=== PATIENT | female | born 1980 | race Caucasian/White ===

== ENCOUNTER 2021-08-31 01:21 | Day surgery (SDC) | payer OTHER, SELFPAY ==
[2021-08-17 14:08] VITALS: BMI 28.8
[2021-08-31 09:14] VITALS: BP 138/90; PULSE 91; RESP 16; TEMP 36.2; O2SAT 99; BMI 28.3
[2021-08-31] MEDS: LACTATED RINGERS 1,000 ML 150 ML IV CONT (09:27)
--- NOTE | 2021-08-31 09:50 | P.PNAN_ITS ---
Anes - Initial Pre Proc Eval Procedure: Operation Date: 08/31/21 10:30 Proposed Procedures p Screening Colonoscopy - Dawit Jackman MD Date/Time: 08/31/21 09:50 Surgeon: Dawit Jackman MD Pre Op Diagnosis: family hx of colon ca Patient Data Age: 41 Gender: F Height: 1.68 m Weight: 79.7 kg Last Vital Signs Temp 36.2 C L 08/31/21 09:14 Pulse 91 08/31/21 09:14 Resp 16 08/31/21 09:14 BP 138/90 08/31/21 09:14 Pulse Ox 99 08/31/21 09:14 O2 Del Method Room Air 08/31/21 09:14 Allergies Allergy/AdvReac Type Severity Reaction Status Date / Time No Known Allergies Allergy Verified 08/31/21 09:09 Home Medications Medication Instructions Recorded Confirmed Type amlodipine 10 mg tablet 10 mg PO DAILY #90 tabs 07/12/21 08/31/21 Rx Patient hx anesthesia problems: none Family hx anesthesia problems: none Results Review: All pre-operative results and documents have been reviewed as part of the pre- operative evaluation. [facility] Past Medical History Medical History (Updated 10/15/20 @ 09:44 by Jose Weiss MD) Screening, lipid Surgical History Surgical History (Updated 08/31/21 @ 09:50 by Venkatesh Preciado MD) History of appendectomy Family History Family History Mother Depression Sibling Patient's sister is in good health Father Family history of alcoholism Other Carcinoma of colon Family history of cardiovascular disease Family history of malignant neoplasm of uterus Hypertension Social History Social History Smoking status: Current every day smoker Tobacco type: cigarettes Alcohol intake: current Living arrangements: with family Spiritual care concerns: No Anes - Eval Final PreProcedure Day of Procedure 08/31/21 09:50 Patient weight: overweight Lungs: clear to auscultation Airway: Mallampati scale class II Neurological: alert and oriented ASA classification: II Emergent: no Anesthesia type and monitoring: general GIVS and standard monitoring Results Review: All pre-operative results and documents have been reviewed as part of the pre- operative evaluation. Informed Consent: The patient's anesthetic plan and its attendant risks and benefits were discussed with the patient/family/POA. Questions were solicited and answers provided to the satisfaction of the patient/family/POA.
--- NOTE | 2021-08-31 10:10 | PM.HPGS ---
History of Present Illness History of Present Illness Consent: Risks, benefits, and alternatives have been discussed and questions answered. Patient agrees to proceed with procedure. Chief complaint: family hx of colon ca Narrative: Linsey Rush is a 41 year old female here for first screening colonoscopy, grandparent colon cancer at 50's Review of Systems Constitutional: Constitutional: Denies headache(s) and Denies weakness Eyes: Eyes: Denies blurry vision ENT: Reports Normal hearing present, Denies headache(s) and Denies neck pain Cardiovascular: Cardiovascular: Denies chest pain and Denies dyspnea Respiratory: Respiratory: Denies dyspnea Gastrointestinal: Gastrointestinal: Reports no additional gastrointestinal complaints Genitourinary: Genitourinary: Denies dysuria Musculoskeletal: Musculoskeletal: Denies neck pain Integumentary/Breasts: Skin/Breast: Denies dry skin Neurologic: Reports Normal hearing present, Denies headache(s) and Denies weakness Psychiatric: Psychiatric: Denies anxiety Endocrine: Endocrine: Denies change in body appearance Hematologic/Lymphatic: Hematologic/Lymphatic: Denies easy bleeding Allergic/Immunologic: Allergic/Immunologic: Denies urticaria PMFSH Past Medical History Medical History (Updated 10/15/20 @ 09:44 by Jose Weiss MD) Screening, lipid Surgical History Surgical History (Updated 08/31/21 @ 09:50 by Venkatesh Preciado MD) History of appendectomy Family History Family History Mother Depression Sibling Patient's sister is in good health Father Family history of alcoholism Other Carcinoma of colon Family history of cardiovascular disease Family history of malignant neoplasm of uterus Hypertension Social History Social History Smoking status: Current every day smoker Tobacco type: cigarettes Alcohol intake: current Living arrangements: with family Spiritual care concerns: No Meds Home Medications and Allergies Home Medications Medication Instructions Recorded Confirmed Type amlodipine 10 mg tablet 10 mg PO DAILY #90 tabs 07/12/21 08/31/21 Rx Allergies Allergy/AdvReac Type Severity Reaction Status Date / Time No Known Allergies Allergy Verified 08/31/21 09:09 Vital Signs Vital Signs - 24 hr 08/31/21 09:14 Temperature 97.2 F L Pulse Rate 91 Respiratory Rate 16 Blood Pressure 138/90 Pulse Oximetry 99 Oxygen Delivery Room Air Exam Const: General: comfortable and no acute distress HENMT: General nose exam: Normal nares present Eyes: General: appearance normal, both eyes and all related structures Neck: Neck: no JVD Resp: Auscultation: clear to auscultation bilaterally Cardio: Rate: regular rate Rhythm: regular rhythm GI: Inspection: non-distended GI Palp: Yes Soft to palpation Skin: General skin exam: normal color Neuro: General: gait normal Speech: normal speech Extrem: General: normal to inspection Psych: Mental Status: mental status grossly normal Assessment and Plan Assessment and plan (1) FH: colon cancer in first degree relative <60 years old: Code(s): Z80.0 - Family history of malignant neoplasm of digestive organs Status: Acute Assessment and Plan: colonoscopy
[2021-08-31 10:42] VITALS: BP 96/57; PULSE 67; RESP 19; O2SAT 99
[2021-08-31 10:52] VITALS: BP 115/75; PULSE 77; RESP 24; O2SAT 100
[2021-08-31 11:02] VITALS: BP 112/55; PULSE 67; RESP 22; O2SAT 100
== END 2021-08-31 11:16 | disposition home or self-care (01) ==
PROVIDERS: PCP Internal Medicine; Visit Provider Internal Medicine Gastroenterology
PROC: 0DJD8ZZ Inspection of Lower Intestinal Tract, Via Natural or Artificial Opening Endoscopic (ICD-10-PCS; CPT 45378; principal; 2021-08-31 10:30)
DX: Z12.11 Encounter for screening for malignant neoplasm of colon (principal); K63.5 Polyp of colon; D12.3 Benign neoplasm of transverse colon; Z80.0 Family history of malignant neoplasm of digestive organs; F17.210 Nicotine dependence, cigarettes, uncomplicated
CPT/HCPCS: 45385; 45381; 88305; J2704; J7120

== ENCOUNTER 2022-10-26 08:05 | Outpatient (CLI) | payer OTHER, SELFPAY ==
[2022-10-26 16:54] LABS: Alanine Aminotransferase 17 U/L (6-35); Albumin Level 4.3 g/dL (3.5-5.1); Alkaline Phosphatase 59 U/L (38-126); Anion Gap 4 mmol/L (8-16); Aspartate Amino Transferase 42 U/L (14-36); Bilirubin,Total 0.6 mg/dL (0.2-1.3); Blood Urea Nitrogen 11 mg/dL (7-17); Calcium 9.2 mg/dL (8.4-10.2); Carbon Dioxide 34 mmol/L (22-30); Chloride 101 mmol/L (98-107); Cholesterol 209 mg/dL (0-200); Estimated Glomerular Filt Rate > 60; Glucose 72 mg/dL (65-110); HDL Direct 41 mg/dL; Potassium 4.1 mmol/L (3.4-5.0); Sodium 139 mmol/L (137-145); Triglycerides 134 mg/dL (<150)
[2022-10-26 17:04] LABS: LDL Cholesterol Direct 124 mg/dL
== END 2022-10-26 08:06 | disposition home or self-care (01) ==
LOC: ANHGOSHLAB 08:07
PROVIDERS: PCP Family Medicine; Visit Provider Family Medicine
DX: Z13.29 Encounter for screening for other suspected endocrine disorder (principal); Z13.228 Encounter for screening for other metabolic disorders; Z13.220 Encounter for screening for lipoid disorders
CPT/HCPCS: 36415; 80053; 80061; 84443

== ENCOUNTER 2022-11-10 08:00 | Outpatient (NON) | payer OTHER, SELFPAY | END 2022-11-10 08:01 | disposition home or self-care (01) | PROVIDERS: PCP Family Medicine; Visit Provider Internal Medicine Gastroenterology | DX: K63.5 Polyp of colon (principal); Z80.0 Family history of malignant neoplasm of digestive organs | CPT/HCPCS: 88305 ==

== ENCOUNTER 2022-11-10 08:46 | Day surgery (SDC) | payer OTHER, SELFPAY ==
[2022-10-25 11:11] VITALS: BMI 27.3
[2022-11-10 09:43] VITALS: BP 111/76; PULSE 69; RESP 16; TEMP 36.7; O2SAT 100; BMI 26.1
[2022-11-10] MEDS: LACTATED RINGERS 1,000 ML 150 ML IV CONT (09:52)
--- NOTE | 2022-11-10 09:53 | WPDANESEPPF ---
Anes - Initial Pre Proc Eval Procedure: Operation Date: 11/10/22 10:30 Proposed Procedures p Diagnostic Colonoscopy - Dawit Jackman MD Date/Time: 11/10/22 09:53 Surgeon: Dawit Jackman MD Pre Op Diagnosis: Family HX Colon Cancer, HX Colon Polyps Patient Data Age: 42 Gender: F Height: 1.66 m Weight: 72.2 kg Last Vital Signs Temp 36.7 C 11/10/22 09:43 Pulse 69 11/10/22 09:43 Resp 16 11/10/22 09:43 BP 111/76 11/10/22 09:43 Pulse Ox 100 11/10/22 09:43 O2 Del Method Room Air 11/10/22 09:43 Allergies Allergy/AdvReac Type Severity Reaction Status Date / Time No Known Allergies Allergy Verified 10/28/22 14:52 Home Medications Medication Instructions Recorded Confirmed Type amlodipine 10 mg tablet 10 mg PO DAILY #90 tabs 10/25/22 11/10/22 Rx olmesartan 5 mg tablet 5 mg PO DAILY #90 tabs 10/25/22 11/10/22 Rx multivitamin 1 tablet PO DAILY 10/28/22 11/10/22 History Patient hx anesthesia problems: none Family hx anesthesia problems: none Results Review: All pre-operative results and documents have been reviewed as part of the pre-operative evaluation. [facility] Past Medical History Medical History (Updated 11/10/22 @ 09:53 by Venkatesh Preciado MD) HTN (hypertension) Screening, lipid Surgical History Surgical History History of appendectomy Family History Family History Mother Depression Sibling Patient's sister is in good health Father Family history of alcoholism Other Carcinoma of colon Family history of cardiovascular disease Family history of malignant neoplasm of uterus Hypertension Social History Social History Smoking status: Current every day smoker Tobacco type: e-cigarettes/vaping Alcohol intake: current Alcohol use details: Socially Substance use: never Substance use type: does not use Lack of Transportation: No Lack of Food: Never True Current Housing: I Have Housing Concerned About Future Housing: No Difficulty Paying Gas/Electric Bills: No Difficulty Paying for Meds: No Currently Unemployed: No Education: High School Diploma/GED Difficulty w/ Childcare or Family Care: No Living arrangements: with family Spiritual care concerns: No Anes - Eval Final PreProcedure Day of Procedure 11/10/22 09:53 Patient weight: overweight Heart: regular rate and rhythm Lungs: clear to auscultation Airway: Mallampati scale class II Neurological: alert and oriented ASA classification: II Emergent: no Anesthetic plan: proceed Anesthesia type and monitoring: general GIVS and standard monitoring Results Review: All pre-operative results and documents have been reviewed as part of the pre-operative evaluation. Informed Consent: The patient's anesthetic plan and its attendant risks and benefits were discussed with the patient/family/POA. Questions were solicited and answers provided to the satisfaction of the patient/family/POA.
--- NOTE | 2022-11-10 10:02 | PM.HPGS ---
History of Present Illness History of Present Illness Consent: Risks, benefits, and alternatives have been discussed and questions answered. Patient agrees to proceed with procedure. Chief complaint: Family HX Colon Cancer, HX Colon Polyps Narrative: Linsey Rush is a 42 year old female with large polyp removed last year and also grandparent with colon cancer at 50's Review of Systems Constitutional: Constitutional: Denies headache(s) and Denies weakness Eyes: Eyes: Denies blurry vision ENT: Reports Normal hearing present, Denies headache(s) and Denies neck pain Cardiovascular: Cardiovascular: Denies chest pain and Denies dyspnea Respiratory: Respiratory: Denies dyspnea Gastrointestinal: Gastrointestinal: Reports no additional gastrointestinal complaints Genitourinary: Genitourinary: Denies dysuria Musculoskeletal: Musculoskeletal: Denies neck pain Integumentary/Breasts: Skin/Breast: Denies dry skin Neurologic: Reports Normal hearing present, Denies headache(s) and Denies weakness Psychiatric: Psychiatric: Denies anxiety Endocrine: Endocrine: Denies change in body appearance Hematologic/Lymphatic: Hematologic/Lymphatic: Denies easy bleeding Allergic/Immunologic: Allergic/Immunologic: Denies urticaria PMFSH Past Medical History Medical History (Updated 11/10/22 @ 10:03 by Dawit Jackman MD) Adenomatous colon polyp HTN (hypertension) Screening, lipid Surgical History Surgical History History of appendectomy Family History Family History Mother Depression Sibling Patient's sister is in good health Father Family history of alcoholism Other Carcinoma of colon Family history of cardiovascular disease Family history of malignant neoplasm of uterus Hypertension Social History Social History Smoking status: Current every day smoker Tobacco type: e-cigarettes/vaping Alcohol intake: current Alcohol use details: Socially Substance use: never Substance use type: does not use Lack of Transportation: No Lack of Food: Never True Current Housing: I Have Housing Concerned About Future Housing: No Difficulty Paying Gas/Electric Bills: No Difficulty Paying for Meds: No Currently Unemployed: No Education: High School Diploma/GED Difficulty w/ Childcare or Family Care: No Living arrangements: with family Spiritual care concerns: No Meds Home Medications and Allergies Home Medications Medication Instructions Recorded Confirmed Type amlodipine 10 mg tablet 10 mg PO DAILY #90 tabs 10/25/22 11/10/22 Rx olmesartan 5 mg tablet 5 mg PO DAILY #90 tabs 10/25/22 11/10/22 Rx multivitamin 1 tablet PO DAILY 10/28/22 11/10/22 History Allergies Allergy/AdvReac Type Severity Reaction Status Date / Time No Known Allergies Allergy Verified 10/28/22 14:52 Vital Signs Vital Signs - 24 hr 11/10/22 09:43 Temperature 98.1 F Pulse Rate 69 Respiratory Rate 16 Blood Pressure 111/76 Pulse Oximetry 100 Oxygen Delivery Room Air Exam Const: General: comfortable and no acute distress HENMT: Face/Nose/Sinus: Normal nares present Eyes: General: appearance normal, both eyes and all related structures Neck: Neck: no JVD Resp: Auscultation: clear to auscultation bilaterally Cardio: Rate: regular rate Rhythm: regular rhythm GI: Inspection: non-distended GI Palp: Yes Soft to palpation Skin: General skin exam: normal color Neuro: General: gait normal Speech: normal speech Extrem: General: normal to inspection Psych: Mental Status: mental status grossly normal Assessment and Plan Assessment and plan (1) FH: colon cancer in first degree relative <60 years old: Code(s): Z80.0 - Family history of malignant neoplasm of digestive organs Status: Acute (2) [place]
[2022-11-10 10:18] VITALS: BP 84/57; PULSE 64; RESP 14; O2SAT 99
[2022-11-10 10:28] VITALS: BP 106/72; PULSE 65; RESP 16; O2SAT 100
--- NOTE | 2022-11-10 10:35 | WPDANESPN ---
Anes - Prog Note Post-Op Date/Time: 11/10/22 10:35 Cardiovascular status: normal Respiratory status: normal Airway patency: baseline Mental status: baseline Post-Op hydration status: normal Vital Signs: Last Vital Signs Temp 36.7 C 11/10/22 09:43 Pulse 65 11/10/22 10:28 Resp 16 11/10/22 10:28 BP 106/72 11/10/22 10:28 Pulse Ox 100 11/10/22 10:28 O2 Del Method Room Air 11/10/22 10:28 Pain Score (VAS): 0/10 I/O: Intake & Output 11/09/22 11/10/22 11/10/22 23:59 07:59 15:59 Intake Total 500 Balance 500 Patient Feedback: Patient satisfied with anesthetic care.
[2022-11-10 10:38] VITALS: BP 95/52; PULSE 58; RESP 16; O2SAT 100
--- NOTE | 2022-11-10 10:51 | SUR.PHASEII ---
1045; PT SITTING UPRIGHT ON STRETCHER. AWAKE AND ALERT. TALKING WITH FAMILY AND EATING CRACKERS
== END 2022-11-10 10:51 | disposition home or self-care (01) ==
PROVIDERS: PCP Family Medicine; Visit Provider Internal Medicine Gastroenterology
PROC: 0DJD8ZZ Inspection of Lower Intestinal Tract, Via Natural or Artificial Opening Endoscopic (ICD-10-PCS; CPT 45378; principal; 2022-11-10 10:30)
DX: Z86.010 Personal history of colon polyps (principal); D12.3 Benign neoplasm of transverse colon; K64.8 Other hemorrhoids
CPT/HCPCS: 45380

== ENCOUNTER 2023-11-10 09:05 | Outpatient (CLI) | payer OTHER, SELFPAY ==
[2023-11-10 13:43] LABS: Alanine Aminotransferase 12 U/L (6-35); Albumin Level 4.2 g/dL (3.5-5.1); Alkaline Phosphatase 57 U/L (38-126); Anion Gap 8 mmol/L (4-12); Aspartate Amino Transferase 35 U/L (14-36); Bilirubin,Total 1.4 mg/dL (0.2-1.3); Blood Urea Nitrogen 11 mg/dL (7-17); Calcium 9.1 mg/dL (8.4-10.2); Carbon Dioxide 27 mmol/L (22-30); Chloride 102 mmol/L (98-107); Cholesterol 171 mg/dL (0-200); Estimated Glomerular Filt Rate > 60; Glucose 86 mg/dL (65-110); HDL Direct 40 mg/dL; Potassium 3.9 mmol/L (3.4-5.0); Sodium 137 mmol/L (137-145); Triglycerides 122 mg/dL (<150)
[2023-11-10 13:53] LABS: LDL Cholesterol Direct 103 mg/dL
== END 2023-11-10 09:06 | disposition home or self-care (01) ==
LOC: ANHGOSHLAB 09:06
PROVIDERS: PCP Family Medicine; Visit Provider Family Medicine
DX: Z13.228 Encounter for screening for other metabolic disorders (principal); Z13.220 Encounter for screening for lipoid disorders
CPT/HCPCS: 36415; 80053; 80061

== ENCOUNTER 2024-06-27 09:43 | Outpatient (CLI) | payer OTHER, SELFPAY ==
--- NOTE | ~2024-06-27 | XR_ITS ---
Left Shoulder Technique: AP and scapular Y views were obtained. Clinical History: Pain Findings: No fracture or dislocation is seen. Osseous alignment is anatomic. The glenohumeral and acr omioclavicular joint spaces are preserved. Soft tissues are unremarkable. Impression: Unremarkable left shoulder radiographs. Reviewed, dictated and finalized at [facility]. Impression: Unremarkable left shoulder radiographs.
--- OUTSIDE RECORDS SUMMARY | 2024-06-27 10:14 | XMS_ITS | Clinical Summary ---
Author Organization [facility] Address [address] [place] [address] Care Team Providers [employer] Member Name Role Phone Sarath Way Primary Care Provider [phone] Source Comments [facility],non-owned Affiliates and Associated Physician Practices is amultiple site organization consisting of ambulatory clinics and hospital sitesin [place], [place], [place] and [place]. This disclosure is being madepursuant to the Care Everywhere program and may not contain all information available regarding this patient. Last updated 17.[facility] Allergies No known active allergies Medications * Be aware that medications may not be up to date on this document. Alwaysverify current medications with the patient. Medication Sig Dispensed Refills Start Date End Date Status amLODIPine (NORVASC) 10 MG tablet Take 10 mg by mouth once daily 09/20/2021 Active sulfamethoxazole-trim ethoprim (Bactrim; Septra) 400-80 MG tablet Take 1 (one) tablet by mouth 2 times daily 20 tablet 03/22/2022 Active Active Problems Problem Noted Date Diagnosed Date Rh negative status during 10/20/2009 Overview (10/20/2009): S/p rhogam 30 Subchorionic hemorrhage 10/20/2009 Abnormal glucose 10/20/2009 Overview (10/20/2009): GCT 145 with normal GTT (78/156/121/79) Pituitary adenoma 10/20/2009 Overview (10/20/2009): Microadenoma; pt on cabergoline prior to pg Pain in soft tissues of limb 07/06/2009 Transient hypertension of , antepartum 07/06/2009 Immunizations Name Administration Dates Next Due Rho D Immune Globulin 10/22/2009 Family History Medical History Relation Name Comments Cancer Maternal Grandfather Heart Failure Maternal Grandfather Hypertension Maternal Grandfather Hypercholesterolemia Mother Hypertension Mother Cancer Paternal Grandmother Relation Name Status Comments Maternal Grandfather Mother Paternal Grandmother Social History Tobacco Use Types Packs/Day Years Used Date Smoking Tobacco: Every Day Cigarettes Last attempted to quit: 12/17/2008 Smokeless Tobacco: Never Tobacco Cessation:Ready to Q uit: Not Asked; Counseling Given: Not Answered Alcohol Use Standard Drinks/Week Comments No 0 (1 standard drink = 0.6 oz pur e alcohol) Sex and Gender Information Value Date Recorded Sex Assigned at Female 03/19/2022 7:41 PM UNDERWEAR C[employer]TER Gender Identity Female 03/19/2022 7:41 PM [employer]WEAR C[employer]TER Sexual Orientation Not on file Last Filed Vital Signs Vital Sign Reading Time Taken Comments Blood Pressure 130/82 03/22/2022 2:00 PM UNDERWEAR CUTTER Pulse 76 03/20/2014 2:11 PM [employer]WEAR C[employer]TER Temperature 35.6 C (96.1 F) 10/20/2020 1:08 PM CDT Respiratory Rate 18 10/25/2009 4:45 PM CDT Oxygen Saturation 97% 10/21/2009 11:00 AM CDT Inhaled Oxygen Concentration - - Weight 76.7 kg (169 lb) 03/22/2022 2:00 PM UNDERWEAR C[employer]TER Height 166.4 cm (5' 5.5 ) 03/22/2022 2:00 PM [employer]WEAR C[employer]TER Body Mass Index 27.7 03/22/2022 2:00 PM UNDERWEAR CUTTER Plan of Treatment Health Maintenance Due Date Last Done Comments LIPID TESTING 1979 HIV SCREENING 07/01/1994 DTAP/TDAP/TD VACCINES (1 - Tdap) 07/01/1998 HEPATITIS B VACCINE (1 of 3 - 19+ 3-dose series) 07/01/1998 PNEUMOCOCCAL VACCINE (1 of 2 - PCV) 07/01/1998 SCREENING FOR DIABETES 10/25/2021 10/20/2009 PAP with HPV 09/11/2023 09/10/2018 COVID-19 VACCINE (1 - 2024-25 season) 2023 INFLUENZA VACCINE (#1) 2023 01/29/2010 DEPRESSION SCREENING 04/10/2024 MAMMOGRAM 12/01/2024 12/01/2022, 10/09, 10/27/2020, Additional history exists ZOSTER VACCINE (1 of 2) 07/01/2029 HEPATITIS C SCREENING Completed 03/09/2009 HIB VACCINE Aged Out No longer eligi ble based on patient's age to complete this topic HPV VACCINE Aged Out No longer eligi ble based on patient's age to complete this topic MENINGOCOCCAL (Group B) VACCINE SHARED DECISION-MAKING Aged Out No longer eligible based on patient's age to complete this topic MENINGOCOCCAL GROUPS A/C/Y/W VACCINE Aged Out No longer eligible based on patient's age to complete this topic Procedures Procedure Name Priority Date/Time Associated Diagnosis Comments MAMMO BILAT SCREENING W JESSICA Routine 12/01/2022 10:26 AM CDT Abnormal mammogram HPV DETECTION HIGH RISK [place]LEY Routine 09/10/2018 10:51 AM CDT Well woman exam COMPREHENSIVE METABOLIC PANEL STAT 10/20/2009 1:35 PM CDT Threat Labor NEC-Antepar HEPATITIS C ANTIBODY Routine 03/09/2009 4:20 PM UNDERWEAR CUTTER from Last 3 Months or Most Recently Relevant to Health Maintenance Results * MAMMO BILAT SCREENING W JESSICA (12/01/2022 10:26 AM CDT) Anatomical Region Laterality Modality Breast Bilateral Mammography 12/01/2022 1:31 PM CDT Impressions 12/01/2022 1:33 PM CDT : No mammographic evidence of malignancy in either breast. ASSESSMENT: BIRADS Category 1: Negative mammogram. RECOMMENDATION: Bilateral screening mammogram in one year. Thank you for allowing us to participate in the care of your patient. [facility] utilizes Zones as a reminder system to notify patients of their next recommended mammogram. > Interpreting Provider: Janet Mackenzie MD on 12/01/2022 1:33 PM Narrative 12/01/2022 1:33 PM CDT EXAMINATION: Digital screening mammogram. Low-dose full-field digital breast tomosynthesis examination was performed with synthetic 2D images. Computer assisted detection was utilized. DATE: 12/01/2022 10:26 AM PRIOR: 2021 and prior mammograms dating back to 2020. BREAST PARENCHYMAL DENSITY: There are scattered areas of fibroglandular density. FINDINGS: No suspicious masses, areas of architectural distortion or microcalcifications are evident on synthetic 2D mammogram or tomosynthesis images. There has been no significant interval change since the prior examination. Reyes Romano MD MAMMO ORDERABLES * HPV DETECTION HIGH RISK [place]LEY (09/10/2018 10:51 AM CDT) Pathologist [facility] High Risk Human Papilloma Result Not Detected Not Detected 09/14/2018 7:26 AM CDT [facility] High Risk Human Papilloma Interp 09/14/2018 7:26 AM CDT [facility] Comment:High Risk Human Aakash lloma Virus was Not Detected. Pathology/Cytolo gy MISCELLANEOUS SAMPLES / Unknown 09/10/2018 10:51 AM CDT 09/11/2018 10:51 AM CDT Narrative [facility] - 09/14/2018 7:26 AM CDT Nucleic acid isolated from the specimen was analyzed with a nucleic acid amplification test (FDA approved Gen-Probe HPV Assay) to detect high risk human papilloma virus (Types: 16, 18, 31, 33, 35, 39, 45, 51, 52, 56, 58, 59, 66, and 68). The reference range is Not Detected . Comment: These test results should not be used as the sole basis for clinical assessment and treatment of patients. These results should always be correlated with other available data (cytology, histology, and clinical information). Reyes Romano MD LAB - MICROBIOLOGY ORDERABLES [facility] [address] [phone] * (ABNORMAL) COMPREHENSIVE METABOLIC PANEL (10/20/2009 1:35 PM CDT) Sodium 139 137 - 145 mmol/L [facility] Potassium 3.9 3.6 - 5.0 mmol/L [facility] Chloride 106 98 - 107 mmol/L [facility] BUN 3(L) 7 - 17 mg/dl [facility] Creatinine 0.51(L) 0.52 - 1.04 mg/dl [facility] Glucose 70 65 - 105 mg/dl [facility] Calcium 9.1 8.4 - 10.2 mg/dl [facility] Alkaline Phosphatase 223(H) 38 - 126 U/L [facility] AST 28 8 - 39 U/L [facility] Bilirubin Total 0.4 0.2 - 1.3 mg/dl [facility] Protein Total 7.1 6.3 - 8.2 gm/dl [facility] Albumin 3.2(L) 3.9 - 5.0 gm/dl [facility] CO2 23 22 - 30 mmol/L [facility] ALT < 3.(L) 9 - 52 U/L [facility] eGFR by MDRD 142 >60 mL/min/1.7 3m2 [facility] Comment eGFR [facility] Comment: The eGFR does not apply to patients who are younger than 18 or older than 70. BLOOD SPECIMEN / Unknown 10/20/2009 1:35 PM CDT 10/20/2009 2:02 PM CDT Carolina Pineda MD LAB - CHEMISTRY ORDE BRENDA [facility] [address] [place] [address] * HEPATITIS C ANTIBODY (03/09/2009 4:20 PM UNDERWEAR CUTTER) Hepatitis C Antibody NON-REACTI VE NON-REACT PETR [facility]) Signal/Cutoff 0.09 <1.00 [facility]) Comment: Test Performed at: [facility] [address] [place] [address] RONY PEARSON DO,MPH 03/09/2009 4:20 PM UNDERWEAR CUTTER 03/09/2009 4:14 PM UNDERWEAR CUTTER Narrative [facility]) - 03/10/2009 10:00 AM UNDERWEAR CUTTER Preferred Lab:->[facility] Reyes Romano MD LAB - CHEMISTRY ORD ERABLES [facility]) from Last 3 Months or Most Recently Relevant to Health Maintenance Advance Directives * Full Code (Latest Code Status on File) Date Activated Date Inactivated Comments 10/20/2009 2:54 PM 10/26/2009 6:54 AM Care Teams [employer] Member Relationship Specialty Start Date End Date Sarath Way DO [address] [place] [phone] PCP - General Family Medicine 10/28/21
== END 2024-06-27 09:44 | disposition home or self-care (01) ==
PROVIDERS: PCP Nurse Practitioner Family; Visit Provider Nurse Practitioner Family
DX: M25.512 Pain in left shoulder (principal)
CPT/HCPCS: 73030

== ENCOUNTER 2024-11-04 09:10 | Outpatient (CLI) | payer OTHER, SELFPAY ==
--- OUTSIDE RECORDS SUMMARY | 2024-11-04 09:25 | XMS_ITS | Clinical Summary ---
Author Organization [facility] [employer] Address [address] 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 This disclosure is being madepursuant to the Care Everywhere program and may not contain all information available regarding this patient. Last updated 17.[employer] Allergies No known active allergies Medications * Be aware that medications may not be up to date on this document. Alwaysverify current medications with the patient. amLODIPine (NORVASC) 10 MG tablet Take 10 mg by mouth once daily 09/20/2021 Active sulfamethoxazole -trimethoprim (Bactrim; Septra) 400-80 MG tablet Take 1 [...] Transient hypertension of , antepartum 07/06/2009 Immunizations Immunization Administration Dates Next Due Rho D Immune [...] drink = 0.6 oz pur e alcohol) Comments No Sex and Gender Information Value Date Recorded Sex Assigned at Female 03/19/2022 7:41 PM [employer] Legal Sex Female 8:41 AM [employer] Gender Identity Female 03/19/2022 7:41 PM [employer] Sexual Orientation Not on file Last Filed Vital Signs Vital Sign Reading Time Taken Comments Blood Pressure 130/82 03/22/2022 2:00 PM [employer] Pulse 76 03/20/2014 2:11 PM [employer] Temperature 35.6 C (96.1 F) 10/20/2020 1:08 PM CDT Respiratory Rate 18 10/25/2009 4:45 PM CDT Oxygen Saturation 97% 10/21/2009 11:00 AM CDT Inhaled Oxygen Concentration - - Weight 76.7 kg (169 lb) 03/22/2022 2:00 PM [employer] Height 166.4 cm (5' 5.5) 03/22/2022 2:00 PM [employer] Body Mass Index 27.7 03/22/2022 2:00 PM [employer] Plan of Treatment Health Maintenance Due Date Last Done Comments COLOGUARD (AGES 45-75) - COLON CA SCREENING 1979 COLON MONITORING 1979 COLONOSCOPY - COLON CA SCREENING 1979 CT COLONOGRAPHY - COLON CA SCREENING 1979 Colorectal Cancer Screening 1979 FIT - COLON CA SCREENING 1979 FLEX SIG - COLON CA SCREENING 1979 LIPID TESTING 1979 HIV SCREENING 07/01/1994 DTAP/TDAP/TD VACCINES (1 - Tdap) 07/01/1998 HEPATITIS B VACCINE (1 of 3 - 19+ 3-dose series) 07/01/1998 PNEUMOCOCCAL VACCINE (1 of 2 - PCV) 07/01/1998 HPV VACCINE (1 - 3-dose SCDM series) 07/01/2006 SCREENING FOR DIABETES 10/25/2021 10/20/2009 PAP with HPV 09/11/2023 09/10/2018 COVID-19 VACCINE ( season) 2023 DEPRESSION SCREENING 04/10/2024 MAMMOGRAM 12/01/2024 12/01/2022, 07/04/2021, 10/27/2020, Additional history exists INFLUENZA VACCINE (#1) 2024 01/29/2010 ZOSTER VACCINE (1 of 2) 07/01/2029 HEPATITIS [...] HEPATITIS C ANTIBODY Routine 03/09/2009 4:20 PM 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 [facility] utilizes [employer] as a reminder system to notify patients [...] significant interval change since the prior examination. us Reyes Romano MD MAMMO ORDERABLES Final Resu lt * HPV DETECTION HIGH RISK [place] (09/10/2018 10:51 AM CDT) High Risk Human Papilloma Result Not Detected Not Detected 09/14/2018 7:26 AM CDT [facility] High Risk Human Papilloma Interp 09/14/2018 7:26 AM CDT [facility] Comment:High Risk Human Aakash lloma Virus was Not Detected. Pathology/Cytolo gy MISCELLANEOUS SAMPLES / Unknown 09/10/2018 10:51 AM CDT 09/11/2018 10:51 AM CDT Narrative [facility] - 09/14/2018 7:26 AM CDT Nucleic acid isolated from the specimen was analyzed with a nucleic acid amplification test (FDA approved Gen-Probe HPV Assay) to detect high risk human papilloma virus (Types: 16, 18, 31, 33, 35, 39, 45, 51, 52, 56, 58, 59, 66, and 68). The reference range is Not Detected. Comment: These test results should not be used as the sole basis for clinical assessment and treatment of patients. These results should always be correlated with other available data (cytology, histology, and clinical information). us Reyes Romano MD LAB - MICROBIOLOGY ORDERABL ES Final Result [facility] [address] [place], [place] [id number] [place] [address] * (ABNORMAL) COMPREHENSIVE METABOLIC PANEL (10/20/2009 1:35 PM CDT) Pathologist [facility] Sodium 139 137 - 145 mmol/L [facility] Potassium 3.9 3.6 - 5.0 mmol/L [facility] Chloride 106 98 - 107 mmol/L [facility] BUN 3(L) 7 - 17 mg/dl [facility] Creatinine 0.51(L) 0.52 - 1.04 mg/dl [facility] Glucose 70 65 - 105 mg/dl [facility] Calcium 9.1 8.4 - 10.2 mg/dl [facility] Alkaline Phosphatase 223(H) 38 - 126 U/L [facility] AST 28 8 - 39 U/L [facility] Bilirubin Total 0.4 0.2 - 1.3 mg/dl [facility] Protein Total 7.1 6.3 - 8.2 gm/dl [facility] Albumin 3.2(L) 3.9 - 5.0 gm/dl [facility] CO2 23 22 - 30 mmol/L [facility] ALT < 3.(L) 9 - 52 U/L [facility] eGFR by MDRD 142 >60 mL/min/1.7 3m2 [facility] Comment eGFR [facility] Comment: The eGFR does not apply to patients who are younger than 18 or older than 70. BLOOD SPECIMEN / Unknown 10/20/2009 1:35 PM CDT 10/20/2009 2:02 PM CDT Carolina Pineda MD LAB - CHEMISTRY ORDERABLES Ban l Result [facility] [address] [place] [address] * HEPATITIS C ANTIBODY (03/09/2009 4:20 PM SPECIAL AGENT [employer]) Pathologist [facility] Hepatitis C Antibody NON-REACTI VE NON-REACT PETR [facility] Signal/Cutoff 0.09 <1.00 [facility] Comment: Test Performed at: [facility] [address] [place] [address] RONY PEARSON DO,MPH 03/09/2009 4:20 PM [employer] 03/09/2009 4:14 PM [employer] Narrative [facility] - 03/10/2009 10:00 AM SPECIAL AGENT [employer] Preferred Lab:->[facility] Reyes Romano MD LAB - CHEMISTRY ORDERABLES Final Result [facility]) [id number] from Last 3 Months or Most Recently Relevant to Health Maintenance Insurance [facility] [id number] [facility] Advance Directives * Full Code (Latest Code Status on File) Date Activated Date Inactivated Comments 10/20/2009 2:54 PM 10/26/2009 6:54 AM 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
[2024-11-04 13:06] LABS: Hematocrit 40.5 % (37.0-47.0); Hemoglobin 13.2 g/dL (12.0-15.0); Mean Corpuscular HGB Conc 32.6 g/dl (32-36); Mean Corpuscular Hemoglobin 29.6 pg (26-34); Mean Corpuscular Volume 90.8 fl (80-100); Platelet Count Result 309 k/mm3 (150-375); Red Blood Count 4.46 M/mm3 (4.2-5.4); White Blood Count 5.9 K/mm3 (4.5-10.0)
[2024-11-04 14:21] LABS: Alanine Aminotransferase 14 U/L (6-35); Albumin Level 4.2 g/dL (3.5-5.1); Alkaline Phosphatase 49 U/L (38-126); Anion Gap 6 mmol/L (4-12); Aspartate Amino Transferase 31 U/L (14-36); Bilirubin,Total 0.9 mg/dL (0.2-1.3); Blood Urea Nitrogen 12 mg/dL (7-17); Calcium 9.0 mg/dL (8.4-10.2); Carbon Dioxide 26 mmol/L (22-30); Chloride 102 mmol/L (98-107); Cholesterol 201 mg/dL (0-200); Estimated Glomerular Filt Rate > 60; Glucose 85 mg/dL (65-110); HDL Direct 45 mg/dL; Potassium 4.2 mmol/L (3.4-5.0); Sodium 134 mmol/L (137-145); Total Protein 7.7 g/dL (6.3-8.2); Triglycerides 83 mg/dL (<150)
== END 2024-11-04 09:11 | disposition home or self-care (01) ==
LOC: ANHGOSHLAB 09:10
PROVIDERS: PCP Nurse Practitioner Family; Visit Provider Nurse Practitioner Family
DX: D35.2 Benign neoplasm of pituitary gland (principal); I10 Essential (primary) hypertension; D12.6 Benign neoplasm of colon, unspecified; Z80.0 Family history of malignant neoplasm of digestive organs; D72.0 Genetic anomalies of leukocytes; Z72.0 Tobacco use; Z76.89 Persons encountering health services in other specified circumstances
CPT/HCPCS: 36415; 80053; 80061; 85027